=== PATIENT | male | born 1990 | race African-American/Black ===

== ENCOUNTER 2025-04-18 13:27 | Emergency (ER) | payer OTHER, SELFPAY ==
[2025-04-18 13:36] VITALS: BP 146/84
--- NOTE | 2025-04-18 15:07 | ED.GENMED ---
History of Present Illness
General
Chief Complaint: Back Pain
Source: patient and spouse
Exam Limitations: none
Time Seen by Provider: 04/18/25 14:40
Nursing documentation reviewed up to this point in time: agreed with
History of Present Illness
History of Present Illness:
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 States his chronic back pain has become
worse past week, no recollection of overuse or injury. Denies radiation of pain, denies saddle anesthesia, denies loss of bowel or bladder control, denies fever/chills.
Has a hearing coming up on Apr.21.
Past History
Past History
ED Past Medical History: Other (Reports old compression fractures of spine, chronic thoracic back pain)
ED Past Surgical History: Orthopedic
Social History
Tobacco: Non-smoker
Alcohol: None
Personal:
Living: with family
Employment: Not employed
Review of Systems
Review of Systems
Allergies reviewed?: Yes
All Other Systems: ROS reviewed and negative except as documented in HPI and ROS
Constitutional: Denies fever
Respiratory: Denies trouble breathing
Cardiac: Denies chest pain
ABD/GI: Denies abdominal pain
: Denies incontinence
Phy Exam
Physical Exam
Physical Exam:
GENERAL: No acute distress. A&Ox3.
CONSTITUTIONAL: Afebrile.
RESPIRATORY: Regular respirations, nonlabored, lungs clear.
CARDIOVASCULAR: Regular rate and rhythm, no murmurs, no rubs.
GI: Soft, nontender, normal BS
MUSCULOSKELETAL: Palpation of lower thoracic spine reveals tenderness just to the right of the T-spine and that area of the spine. Bilateral straight leg raise intact with no elicited pain. Patient with full range of motion of spine to rotation
and forward flexion. Moves with ease. Well perfused.
SKIN: Warm, dry, normal
PSYCH: Normal mood and affect. Well kept, interactive and appropriate
NEUROLOGIC: Awake, alert and oriented. No focal neurological deficits. Strength 5/5 bilateral LEs. Equal patellar reflexes.
Course
Vital Signs
Initial and Last Documented VS:
Initial Vital Signs
Temp Pulse Resp BP Pulse Ox
98.1 F 73 18 146/84 96
04/18/25 13:36 04/18/25 13:36 04/18/25 13:36 04/18/25 13:36 04/18/25 13:36
Last Documented Vital Signs
Temp Pulse Resp BP Pulse Ox
98.1 F 73 18 146/84 96
04/18/25 13:36 04/18/25 13:36 04/18/25 13:36 04/18/25 13:36 04/18/25 15:13
MDM/Problems Addressed
Differential Diagnosis Includes:
exacerbathion of chronic back pain.
MDM/Problems Addressed:
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 States his chronic back pain has become
worse past week, no recollection of overuse or injury. Denies radiation of pain, denies saddle anesthesia, denies loss of bowel or bladder control, denies fever/chills.
Has a hearing coming up on Apr.21.
Afebrile, NAD
Pt moving around off and on stretcher with no apparent difficulty. Ambulating steadily with normal gait.
15:00
No acute findings. No neuro deficits. He has had imaging in the past and reports he has compression fractures, there has been no new overuse or injury so no indication for imaging at this time.
Patient has been followed [facility], is requesting information to get a new PCP, I will add a steroid taper and muscle relaxant and refer him to pain management Dr. Johnson
I sent his information to her PCP hotline who will get in touch with him to get a PCP
Patient ambulated out with normal gait at discharge
*Pulse Oximetry
SaO2: 96
Oxygen Mode of Delivery: Room air
Patient hypoxic: not evaluated
*Critical Care Note
Total Time (30-74mins, 75-104mins- exclusive of procedures): Not Applicable
ED Attending Note
-
Portions of this chart may have been created with voice recognition software.� Occasional wrong word or��sound alike� substitutions may have occurred due to the inherent limitations of voice recognition software.
Discharge Plan
Departure
Patient Disposition: Home (Routine Discharge)
Date of Disposition: 04/18/25
Time of Disposition: 15:02
Patient with high blood pressure during this ER visit?: No
Condition: Good
Discharge Problem:
Exacerbation of chronic back pain
Instructions: Back Pain
Prescriptions:
New
cyclobenzaprine 10 mg tablet
10 mg PO TID PRN (Reason: muscle spasm/back pain) Qty: 20 0RF
prednisone 10 mg Tablet
See Rx Instructions .ROUTE .COMPLEX Qty: 30 0RF
Rx Instructions:
Take By Mouth:
40 mg daily x3 days, 30 mg daily x3 days,
20 mg daily x3 days, 10 mg daily x3 days.
Referrals:
Matthew Johnson MD [Active, Anesthesiology] - Next open appointment
Samia Lomeli MD [Family Provider] - As needed
Activity Restrictions/Additional Instructions:
As we discussed, I sent a prescription to your pharmacy for a prednisone taper and also for a muscle relaxant.
Do not drive or operate any machinery within 8 hours of taking the muscle relaxant as it can make you sleepy and slow the reflexes.
I gave you referral to an orthopedic doctor and also to a maintenance painter
Continue your gabapentin
Follow-up with [facility] doctor
Call and make appointement with the Pain Management doctor, Dr. Johnson
I sent your information to our PCP hotline, someone will be calling you to get you a new primary care provider.
Interventions
Interventions:
*Risk Screen - Suicide Last Done: 04/18/25 13:39
*General Assessment Last Done: 04/18/25 13:36
*Neglect/Abuse Screening Last Done: 04/18/25 13:36
*ED- Fall Risk Assessment Last Done: 04/18/25 14:25
*ED COVID-19 Vaccine History Last Done: 04/18/25 14:25
*ED Influenza Vaccine History Last Done: 04/18/25 14:25
*Nursing Disposition Last Done: 04/18/25 15:11
ED-Musculoskeletal Assessment Last Done: 04/18/25 14:25
Discharge Date and Time
Discharge Date/Time: 04/18/25 15:12
Print Language: MALAY
== END 2025-04-18 15:12 | disposition home or self-care (01) ==
LOC: EMR 13:27
PROVIDERS: EMERGENCY PHYSICIAN Emergency Medicine; FAMILY PHYSICIAN Family Medicine
DX: G89.29 Other chronic pain (principal); M54.6 Pain in thoracic spine
CPT/HCPCS: 99282